=== PATIENT | male | born 1975 | race Caucasian/White ===

== ENCOUNTER 2023-07-16 10:02 | Day surgery (SDC) | payer BC ==
[2023-07-15 12:15] VITALS: BMI 28.7
[2023-07-16] MEDS ORDERED: PROPOFOL 40 ML ONE (11:43)
[2023-07-16] MEDS ORDERED: Lidocaine 1% PF 5 ML VIAL ONE (11:43)
[2023-07-16] MEDS ORDERED: PROPOFOL 20 ML ONE ×2 (12:14→12:37)
== END 2023-07-16 13:30 | disposition home or self-care (01) ==
LOC: CSHSDC 10:02
PROVIDERS: ATTEND Surgery
PROC: 0DBL8ZZ Excision of Transverse Colon, Via Natural or Artificial Opening Endoscopic (ICD-10-PCS; principal; 2023-07-16)
DX: Z12.11 Encounter for screening for malignant neoplasm of colon (principal); D12.3 Benign neoplasm of transverse colon; J45.909 Unspecified asthma, uncomplicated
CPT/HCPCS: 88305; A4215; J2704